=== PATIENT | female | born 1955 | race Caucasian/White ===

== ENCOUNTER 2016-10-07 05:53 | Observation (INO) | payer OTHER ==
[~2016-10-07] VITALS: Ht 170.2 cm; Wt 99.7 kg
[2016-10-07] VITALS (10 sets, daily range): BP systolic 126–154; BP diastolic 64–102
--- NOTE | ~2016-10-07 | H ---
[facility] [address] [place] [address] HISTORY AND PHYSICAL Name: ETHANMYESHA Donna Room #: 543-P [facility] Cydney M.R.#: [id number] Admission: 10/07/16 Attend Phys: Yaya Arguello MD Discharge: 10/08/16 Date of : 59 Report #: [id number] THIS REPORT FOR: //name// For History and Physical, please see office documentation/handwritten note in the patient's medical record. <ELECTRONICALLY SIGNED> By: Yaya Arguello MD 10/14/16 0839 0921 Yaya Arguello MD /
--- NOTE | ~2016-10-07 | O ---
[facility] [place] [address] OPERATIVE REPORT Name: MYESHA LONG Room #: 543-P [facility]..#: [id number] Admission: 10/07/16 Attend Phys: Yaya Arguello MD Discharge: Date of : 59 Report #: [id number] THIS REPORT FOR: //name// CC: Yaya Martineze [facility] DATE OF SERVICE: 10/07/2016 PREOPERATIVE DIAGNOSES: 1. Right talonavicular fusion nonunion. 2. Right foot and ankle retained hardware. 3. Right fifth tarsometatarsal joint osteoarthritis. POSTOPERATIVE DIAGNOSES: 1. Right talonavicular fusion nonunion. 2. Right foot and ankle retained hardware. 3. Right fifth tarsometatarsal joint osteoarthritis. SURGEON: Yaya Arguello M.D. PHYSICIST CRYOGENICS: NICHO Morocho, critical for the safe performance of the procedure and for positioning. PROCEDURES: 1. Right foot revision talonavicular arthrodesis. 2. Right foot and ankle hardware removal. 3. Right fifth TMT joint steroid injection. SURGEON: Yaya Arguello M.D. ANESTHESIA: General. ESTIMATED BLOOD LOSS: 25 mL. DRAINS: No drains. TOURNIQUET TIME: 75 minutes. DESCRIPTION OF PROCEDURE: The patient brought to the operating room, where she was placed under general anesthesia. Once under adequate general anesthesia, her right lower extremity was prepped and draped in the sterile manner. The extremity was elevated and exsanguinated. Tourniquet placed to 300 mmHg. Utilizing fluoroscopy for guidance, a guidewire for the 7.3 mm cannulated screw was then utilized to remove the screws that could be identified across the ankle arthrodesis, through small stab incisions with the 7.3 mm cannulated screwdriver. The patient's prior incision over the anterior talonavicular joint [address] [address] OPERATIVE REPORT Name: MYESHA LONG [id number] Admission: 10/07/16 Attend Phys: Yaya Arguello MD Discharge: Date of : 59 Report #: [id number] was then utilized to expose the dorsal 7.3 mm cannulated screw heads, which were then removed as well. A guidewire for the 4.5 mm cannulated screws was then utilized as well, over the calcaneocuboid joint and talonavicular joint were removed. All of the remaining 4.5 mm cannulated screws once removed. The talonavicular joint was debrided once again and freshened up with a rongeur to good bleeding subchondral bone. Demineralized bone matrix allograft was then placed and four 4.5 mm cannulated screws were placed across the talonavicular joint for fixation as verified under fluoroscopy. 1 mL of 40 mg Depo-Medrol was then placed across the fifth TMT joint under fluoroscopic guidance as well. The wounds were then irrigated copiously and closed with 2-0 Vicryl in the subcutaneous tissues, and yfn were used for the skin. The wounds were dressed with Xeroform, 4 x 4s, and sterile soft compressive dressing with a short leg cast was placed. Tourniquet was let down at 75 minutes. Toes were pink and warm with good capillary refill. There were no complications from the procedure. The patient tolerated the procedure well and went to the recovery room without incident. <ELECTRONICALLY SIGNED> By: Yaya Arguello MD 10/08/16 0759 [id number] [id number] Yaya Arguello MD /nt
[~2016-10-07 05:53] MED LIST: APAP500 PO; APAP650 PO; ARTHRITIS PAIN650 MG PO; B COMPLEX1 EAC1 PO; CELEBREX 200 M200 M1 PO; CENTRUM SILVER1 EAC4 PO; EFFEXOR 5050 MG/1 T1 PO; EFFEXOR XR150 MG PO; FELDENE20 MG OR; HYDROCODONE-APA1 TA1 PO; NEURONTIN 300300 M1 PO; OMEPRAZOLE40 MG PO; PERCOCET 7.5-31 EACH PO; PREVACID PO; PROMS25 WY RECTAL; ULTRAM 50MG TAB50 MG PO; ZOFRAN ODT4 MG PO
[2016-10-07] MEDS ORDERED: PERCOCET 7.5-31 EACH PO (09:02)
[2016-10-07] MEDS ORDERED: ASPIR-TRIN325 MG PO (09:03)
[2016-10-08 00:13] VITALS: BP 117/66
[2016-10-08 04:15] VITALS: BP 123/62
[2016-10-08 08:44] VITALS: BP 154/64
== END 2016-10-08 09:27 | disposition home or self-care (01) ==
LOC: OR 05:53 → TBA 05:54 → OR 08:58 → 5S 12:45 → OR 12:45 → EDSTATUS 14:24 → OR 14:29 → 5S 10-08 09:27
DX: M96.0 Pseudarthrosis after fusion or arthrodesis (principal); M13.88 Other specified arthritis, other site; M19.071 Primary osteoarthritis, right ankle and foot; R11.2 Nausea with vomiting, unspecified; R07.9 Chest pain, unspecified
CPT/HCPCS: 50010; 50101; 50386; 50679; 51008; 51412; 53023; 56524; 57091; 62110; 62900; 64042; 70005

== ENCOUNTER → 2017-02-07 | Outpatient (CLI) | payer OTHER ==
[~2017-02-07] MED LIST changes: +ASPIR-TRIN325 MG PO
== END ==
LOC: RAD 14:19
DX: Z12.31 Encounter for screening mammogram for malignant neoplasm of breast (principal)

== ENCOUNTER → 2018-04-30 | Outpatient (CLI) | payer OTHER | LOC: RAD 01:22 | DX: Z12.31 Encounter for screening mammogram for malignant neoplasm of breast (principal) ==

== ENCOUNTER → 2018-05-05 | Outpatient (CLI) | payer OTHER | LOC: CAT 11:06 | DX: Z13.6 Encounter for screening for cardiovascular disorders (principal); E78.00 Pure hypercholesterolemia, unspecified ==

== ENCOUNTER → 2019-11-26 | Outpatient (CLI) | payer OTHER | LOC: SJCVCIMAG 07:52 | DX: I08.1 Rheumatic disorders of both mitral and tricuspid valves (principal); E78.5 Hyperlipidemia, unspecified; E66.9 Obesity, unspecified; R06.00 Dyspnea, unspecified; E78.00 Pure hypercholesterolemia, unspecified; Z87.891 Personal history of nicotine dependence ==

== ENCOUNTER → 2020-01-26 | Outpatient (CLI) | payer OTHER ==
[~2020-01-26] MED LIST changes: +CELEBREX50 MG PO
[2020-01-26 09:24] LABS: ABSOLUTE NEUTROPHILS 6.2 thou/uL (1.4-8.2); BASOPHILS 1.1 % (0.0-2.0); EOSINOPHILS 2.6 % (0.0-3.0); HEMATOCRIT 40.1 % (37.0-47.0); HEMOGLOBIN 13.5 gm/dL (12.0-15.0); LYMPHOCYTES 24.1 % (24.0-44.0); MCH 29.9 pg (26.0-34.0); MCHC 33.5 g/dL (28.0-37.0); MCV 89.1 fL (80.0-100.0); MONOCYTES 7.3 % (1.0-8.0); PLATELET COUNT 326 thou/uL (150-400); POLYS 64.9 % (36.0-66.0); RDW 13.2 % (10.5-14.5); WBC 9.5 thou/uL (4.0-11.0)
[2020-01-26 09:33] LABS: ALBUMIN 4.2 g/dL (3.4-5.0); CALCIUM 9.1 mg/dL (8.5-10.1); CREATININE 0.7 mg/dL (0.6-1.0); POTASSIUM 4.2 mmol/L (3.5-5.1); TOTAL BILIRUBIN 0.5 mg/dL (0.2-1.0); TOTAL PROTEIN 6.9 g/dL (6.4-8.2)
== END ==
LOC: LABMALL 08:56
PROVIDERS: ATTEND Family Medicine
DX: E78.00 Pure hypercholesterolemia, unspecified (principal); Z00.00 Encounter for general adult medical examination without abnormal findings

== ENCOUNTER → 2021-01-29 | Outpatient (CLI) | payer OTHER ==
[2021-01-29 15:55] LABS: ABSOLUTE NEUTROPHILS 8.7 thou/uL (1.4-8.2); BASOPHILS 1.1 % (0.0-2.0); EOSINOPHILS 2.3 % (0.0-3.0); HEMATOCRIT 39.4 % (37.0-47.0); HEMOGLOBIN 13.2 gm/dL (12.0-15.0); LYMPHOCYTES 24.5 % (24.0-44.0); MCH 29.5 pg (26.0-34.0); MCHC 33.4 g/dL (28.0-37.0); MCV 88.1 fL (80.0-100.0); MONOCYTES 6.7 % (1.0-8.0); PLATELET COUNT 323 thou/uL (150-400); POLYS 65.4 % (36.0-66.0); RBC 4.47 mil/uL (4.20-5.00); RDW 13.3 % (10.5-14.5); WBC 13.3 thou/uL (4.0-11.0)
[2021-01-29 16:15] LABS: ANION GAP 11 mmol/L (7-16); BUN 20 mg/dL (7-18); CALCIUM 8.7 mg/dL (8.5-10.1); CHLORIDE 103 mmol/L (98-107); CHOLESTEROL 153 mg/dL (<200); CO2 26 mmol/L (21-32); CREATININE 0.8 mg/dL (0.6-1.0); GLUCOSE 119 mg/dL (74-106); HDL CHOLESTEROL 59 mg/dL (>40); LDL CHOLESTEROL 68 mg/dL (<100); POTASSIUM 3.9 mmol/L (3.5-5.1); SGOT 16 U/L (15-37); SGPT 20 U/L (30-65); SODIUM 140 mmol/L (136-145); TC:HDL 2.6 Ratio (Not establshd); TOTAL BILIRUBIN 0.2 mg/dL (0.2-1.0); TOTAL PROTEIN 7.5 g/dL (6.4-8.2); TRIGLYCERIDE 132 mg/dL (<150); VLDL 26 mg/dL (<40)
== END ==
LOC: LAB 15:31
PROVIDERS: ATTEND Nurse Practitioner
DX: Z00.00 Encounter for general adult medical examination without abnormal findings (principal); E78.2 Mixed hyperlipidemia

== ENCOUNTER → 2021-04-26 | Outpatient (CLI) | payer OTHER ==
[~2021-04-26] MED LIST changes: +PRAVASTATIN SOD20 MG PO
== END ==
LOC: LAB 07:52
PROVIDERS: Student in an Organized Health Care Education/Training Program; ATTEND Specialist
DX: Z01.812 Encounter for preprocedural laboratory examination (principal); Z20.822 Contact with and (suspected) exposure to COVID-19

== ENCOUNTER → 2021-04-27 | Outpatient (CLI) | payer OTHER ==
[~2021-04-27] VITALS: Ht 167.6 cm; Wt 90.7 kg
--- NOTE | ~2021-04-27 | P ---
[facility] [place] [address] PROCEDURE REPORT Name: MYESHA LONG Room #: [facility].#: [id number] Admission: 04/27/21 Attend Phys: Greg Donnelly Discharge: Date of : 59 Report #: [id number] THIS REPORT FOR: cc: Santy Hinton MD, Rene P. MD McElhinney, Christian C. MD ~ cc: Santy Hinton MD DATE OF SERVICE: 04/27/2021 PROCEDURE PERFORMED: Colonoscopy. HISTORY OF PRESENT ILLNESS: The patient is a 66-year-old female who presents today for routine screening colonoscopy. No previous history of colonoscopy. She denies any symptoms, no family history of colon cancer. DESCRIPTION OF PROCEDURE: The risks and benefits of the procedure were explained to the patient, those risks including but not limited to bleeding, perforation and the risk of sedation. She understood these risks and gave informed consent. Sedation was given using propofol per anesthesia. Next, a digital rectal exam was initially performed, which was normal. Next, using a standard Olympus colonoscope, the scope was placed in the patient's anus and advanced under direct vision to the cecum. The overall prep was excellent. The cecum and ileocecal valve were normal in appearance. The ascending, transverse and descending colon were normal. A few scattered diverticula were noted in the sigmoid colon. No evidence of inflammation, otherwise normal. The rectal mucosa was normal. On retroflexion, no abnormalities were noted. The scope was then withdrawn and the procedure terminated. The patient tolerated the procedure well. IMPRESSION: 1. Mild sigmoid diverticulosis. 2. Otherwise, normal colonoscopy. RECOMMENDATIONS: Repeat colonoscopy in 10 years. Thank you for allowing me to participate in her care. By: [id number] Greg Santamaria MD /nt
== END | disposition home or self-care (01) ==
LOC: GI 07:26
PROVIDERS: ATTEND Specialist
DX: Z12.11 Encounter for screening for malignant neoplasm of colon (principal); K57.30 Diverticulosis of large intestine without perforation or abscess without bleeding; E78.5 Hyperlipidemia, unspecified; K21.9 Gastro-esophageal reflux disease without esophagitis; F32.9 Major depressive disorder, single episode, unspecified; F41.9 Anxiety disorder, unspecified; G47.30 Sleep apnea, unspecified; Z98.890 Other specified postprocedural states; Z79.899 Other long term (current) drug therapy; Z87.891 Personal history of nicotine dependence; Z85.828 Personal history of other malignant neoplasm of skin; Z90.710 Acquired absence of both cervix and uterus; Z90.49 Acquired absence of other specified parts of digestive tract
CPT/HCPCS: 62110; 62900

== ENCOUNTER → 2021-05-03 | Outpatient (CLI) | payer OTHER | LOC: RAD 15:13 | PROVIDERS: ATTEND Family Medicine | DX: Z12.31 Encounter for screening mammogram for malignant neoplasm of breast (principal) ==